=== PATIENT | female | born 1975 | race Caucasian/White ===

== ENCOUNTER 2016-12-25 03:40 | Emergency (ER) | payer MEDICAID ==
[~2016-12-25] VITALS: Ht 165.1 cm; Wt 68.0 kg
[~2016-12-25 03:40] MED LIST: ALBUPOW26; ASPI81CH43 PO; ATOM80CA PO; IPRIH; LORA5CHW6; MONT10TA23 PO; NOR5T; PROVENTIL; SIMBACORT IN; ZOLP10TA PO
[2016-12-25] MEDS ORDERED: SODIUM CHLORIDE 0.9% 1,000 ML IV ONE (04:53)
[2016-12-25] MEDS ORDERED: diphenhdrAMINE HCL 50 MG/1 ML VL IV ONE (05:00)
[2016-12-25] MEDS ORDERED: methylPREDNISolone SOD SUCC 125 MG/2 ML VL IV ONE (05:00)
[2016-12-25 05:58] VITALS: BP 119/52
== END 2016-12-25 06:23 | disposition home or self-care (01) ==
LOC: ER 03:46
DX: M32.9 Systemic lupus erythematosus, unspecified (principal); J44.9 Chronic obstructive pulmonary disease, unspecified; J45.909 Unspecified asthma, uncomplicated; M19.90 Unspecified osteoarthritis, unspecified site; Z79.82 Long term (current) use of aspirin; Z87.891 Personal history of nicotine dependence; Z79.899 Other long term (current) drug therapy; Z88.6 Allergy status to analgesic agent
CPT/HCPCS: 96361; 96374; 96375; 99284; J1200; J2930; J7030